=== PATIENT | male | born 1950 | race Caucasian/White ===

== ENCOUNTER 2023-10-08 09:02 | Emergency (ER) | payer MEDICARE, BC ==
[2023-10-08 09:33] LABS: Hematocrit 33.9 % (38.8-50.0); Hemoglobin 12.6 g/dL (13.5-17.5); MDiff Complete? YES; Mean Corpuscular HGB CONC 37.2 g/dL (32.0-36.0); Mean Corpuscular Hemoglobin 39.5 pg (27.0-33.0); Mean Corpuscular Volume 106.3 fL (81.2-95.1); Mean Platelet Volume 10.1 fL (7.4-10.4); Platelet Count 119 10x3/uL (150-450); RBC Distribution Width 12.6 % (11.5-14.5); Red Blood Cell (RBC) Count 3.19 10x6/uL (4.32-5.72); White Blood Cell (WBC) Count 1.8 10x3/uL (3.5-10.5)
[2023-10-08 09:56] LABS: Troponin I Less than 0.010 ng/mL (< 0.028)
[2023-10-08 10:11] LABS: ALT (SGPT) 7 U/L (8-55); AST (SGOT) 30 U/L (5-34); Albumin 4.1 g/dL (3.4-4.8); Alkaline Phosphatase 67 U/L (40-110); Anion Gap 14 mmol/L (10-20); BUN (Urea Nitrogen) 14 mg/dL (8.4-25.7); Bilirubin, Total 1.9 mg/dL (0.2-1.2); Calc. Creatinine Clearance 0 mL/min (70-130); Calcium 9.1 mg/dL (7.8-10.44); Carbon Dioxide 24 mmol/L (23-31); Chloride 104 mmol/L (98-107); Estimated GFR 90; Globulin 2.6 g/dL (2.4-3.5); Glucose 141 mg/dL (83-110); Potassium 3.8 mmol/L (3.5-5.1); Protein, Total 6.7 g/dL (5.8-8.1); Sodium 138 mmol/L (136-145)
[2023-10-08 10:13] LABS: Eosinophils 2 % (0-10); Monocytes 4 % (0-10)
[2023-10-08 10:14] LABS: Lymphocytes 38 % (21-51); Neutrophil 56 % (42-75)
[2023-10-08 10:16] LABS: Large Platelets SLIGHT (None Seen); Macrocytosis SLIGHT = 6-15 cells (100X) (0-5/hpf); Ovalocytes SLIGHT = 2-5 cells (100X) (0-1/hpf); Platelet Adequacy Comment Appears Decreased
== END 2023-10-08 10:16 | disposition home or self-care (01) ==
LOC: CSHERS 09:02
DX: R20.2 Paresthesia of skin (principal); Z55.6 Problems related to health literacy
CPT/HCPCS: 71045; 80053; 84484; 85025; 93005

== ENCOUNTER 2025-02-14 12:58 | Emergency (ER) | payer MEDICARE, BC ==
[2025-02-14 13:35] LABS: Glucose, Urine (Dipstick) Normal (Negative); Leukocyte Negative (Negative); Protein, Urine (Dipstick) 30 mg/dl (Neg-Trace); Specific Gravity, Urine 1.020 (1.005-1.030)
[2025-02-14 13:46] LABS: Bacteria/HPF Rare-Few HPF (None Seen); CAUTI Indications for Culture Pelvic or flank pain; RBC/HPF 0-3 HPF (0-3); Urine Culture Reflex No No; WBC/HPF None Seen HPF (0-3)
[2025-02-14 13:56] LABS: ALT (SGPT) Less than 7 U/L (Less than 45); AST (SGOT) 35 U/L (11-34); Albumin 3.8 g/dL (3.1-4.5); Alkaline Phosphatase 57 U/L (40-110); Anion Gap 13 mmol/L (10-20); BUN (Urea Nitrogen) 28 mg/dL (8.4-25.7); Bilirubin, Total 4.2 mg/dL (0.3-1.2); Calc. Creatinine Clearance 0 mL/min (70-130); Calcium 8.9 mg/dL (7.8-10.44); Carbon Dioxide 22 mmol/L (23-31); Chloride 102 mmol/L (98-107); Globulin 2.8 g/dL (2.4-3.5); Glucose 167 mg/dL (83-110); Lipase 5 U/L (8-78); Potassium 4.2 mmol/L (3.5-5.1); Sodium 133 mmol/L (136-145)
[2025-02-14 13:59] LABS: #Basophils Less than 0.03 10x3/uL (0.0-0.2); #Eosinophils Less than 0.03 10x3/uL (0.0-0.5); #Monocytes 0.03 10x3/uL (0.0-1.1); #Neutrophils 1.94 10x3/uL (1.5-8.4); %Basophils 0.0 % (0.0-2.0); %Eosinophils 0.0 % (0.0-6.0); %Lymphocytes 5.3 % (18.0-47.0); %Monocytes 1.4 % (0.0-10.0); %Neutrophils 92.8 % (40.0-75.0); Hematocrit 30.3 % (38.8-50.0); Hemoglobin 11.3 g/dL (13.5-17.5); Mean Corpuscular Hemoglobin 39.8 pg (27.0-33.0); Mean Corpuscular Volume 106.7 fL (81.2-95.1); Platelet Count 65 10x3/uL (150-450); Red Blood Cell (RBC) Count 2.84 10x6/uL (4.32-5.72); White Blood Cell (WBC) Count 2.09 10x3/uL (3.5-10.5)
[2025-02-14 14:16] LABS: Platelet Adequacy Comment Appears Decreased
== END 2025-02-14 16:33 | disposition home or self-care (01) ==
LOC: CSHERS 12:58
DX: R10.9 Unspecified abdominal pain (principal)
CPT/HCPCS: 74176; 80053; 81001; 83605; 83690; 85025; 93005 ×2; 96374; 99284; J2270; 36415